=== PATIENT | female | born 1970 | race Caucasian/White ===

== ENCOUNTER 2018-01-23 10:16 | Inpatient (IN) | payer MEDICARE, OTHER ==
[~2018-01-23] VITALS: Ht 165.1 cm; Wt 104.3 kg
--- NOTE | 2018-01-23 10:40 | Emergency Room Report ---
History of Present Illness General Chief Complaint: Pain Source: Patient, Caregiver Present Illness HPI Patient was brought in by a transport Unfortunately that was very limited information obtained at the time of presentation Patient herself is intermittently verbal however appears confused and disoriented Not an appropriate historian History of present illness is significantly limited There was a report of total body pain however patient herself cannot provide any history Unknown regarding fall or trauma In the middle of the examination patient reports recent injection in the right foot with cortisone However is not able to elaborate Allergies: Coded Allergies: UNABLE TO ASSESS (Unverified , 01/23/18) Patient History Limited by: medical condition Past Medical History: see triage record Pertinent Family History: none Now: No Reviewed Nursing Documentation: PMH: Agreed; PSxH: Agreed Review of Systems All Other Systems: limited - Other than the ones mentioned in the history of present illness all others are reviewed however they do stay limited due to the patient's mental status Physical Exam Sp02 EP Interpretation: reviewed, normal General Appearance: no apparent distress Head: normocephalic, atraumatic Eyes: bilateral eye PERRL, bilateral eye EOMI ENT: hearing grossly normal, normal pharynx Neck: supple Respiratory: normal breath sounds, no retraction, no accessory muscle use Cardiovascular #1: regular rate, rhythm Gastrointestinal: non tender, soft Musculoskeletal: other - Patient does not follow commands for the examination however is observed moving upper extremities without focal deficit Neurologic: responsive Skin: normal color, no rash Lymphatic: no adenopathy Medical Decision Making Diagnostic Impression: Primary Impression: Acute encephalopathy Additional Impressions: Myalgia Leukocytosis ER Course Multiple differentials considered given the lack of information Given the examination patient had extensive blood work and imaging initiated White blood cell count is showing elevated counts Urine sample showed few blood in mild bacteria potentially the source of the presentation however CT imaging was done Also not showing significant pathology Patient's x-ray shows some mild crowding however patient has poor habitus and poor effort on inspiration likely causing the image does not appear clinically short of breath or in chf Patient provided brought pressure antibiotics and admitted for further care Labs Test 01/23/18 10:45 01/23/18 11:50 White Blood Count 14.9 K/UL (4.8-10.8) Red Blood Count 5.28 M/UL (4.20-5.40) Hemoglobin 15.7 G/DL (12.0-16.0) Hematocrit 47.8 % (37.0-47.0) Mean Corpuscular Volume 91 FL (80-99) Mean Corpuscular Hemoglobin 29.8 PG (27.0-31.0) Mean Corpuscular Hemoglobin Concent 32.9 G/DL (32.0-36.0) Red Cell Distribution Width 12.5 % (11.6-14.8) Platelet Count 397 K/UL (150-450) Mean Platelet Volume 5.7 FL (6.5-10.1) Neutrophils (%) (Auto) 70.4 % (45.0-75.0) Lymphocytes (%) (Auto) 19.8 % (20.0-45.0) Monocytes (%) (Auto) 8.0 % (1.0-10.0) Eosinophils (%) (Auto) 0.9 % (0.0-3.0) Basophils (%) (Auto) 0.9 % (0.0-2.0) Sodium Level 139 MMOL/L (136-145) Potassium Level 3.8 MMOL/L (3.5-5.1) Chloride Level 102 MMOL/L (98-107) Carbon Dioxide Level 27 MMOL/L (21-32) Anion Gap 10 mmol/L (5-15) Blood Urea Nitrogen 20 mg/dL (7-18) Creatinine 0.8 MG/DL (0.55-1.30) Estimat Glomerular Filtration Rate > 60 mL/min (>60) Glucose Level 98 MG/DL (74-106) Calcium Level 9.6 MG/DL (8.5-10.1) Total Bilirubin 0.7 MG/DL (0.2-1.0) Aspartate Amino Transf (AST/SGOT) 27 U/L (15-37) Alanine Aminotransferase (ALT/SGPT) 37 U/L (12-78) Alkaline Phosphatase 101 U/L (46-116) Total Creatine Kinase 146 U/L (26-308) Total Protein 10.0 G/DL (6.4-8.2) Albumin 4.1 G/DL (3.4-5.0) Globulin 5.9 g/dL Albumin/Globulin Ratio 0.7 (1.0-2.7) Lipase 160 U/L (73-393) Urine Color Yellow Urine Appearance Clear Urine pH 6 (4.5-8.0) Urine Specific [place] 1.020 (1.005-1.035) Urine Protein 3+ (NEGATIVE) Urine Glucose (UA) Negative (NEGATIVE) Urine Ketones 4+ (NEGATIVE) Urine Blood 5+ (NEGATIVE) Urine Nitrite Negative (NEGATIVE) Urine Bilirubin 1+ (NEGATIVE) Urine Ictotest Negative (NEGATIVE) Urine Urobilinogen 1 MG/DL (0.0-1.0) Urine Leukocyte Esterase 1+ (NEGATIVE) Urine RBC 5-10 /HPF (0 - 2) Urine WBC 2-4 /HPF (0 - 2) Urine Squamous Epithelial Cells Moderate /LPF (NONE/OCC) Urine Amorphous Sediment Few /LPF (NONE) Urine Bacteria Few /HPF (NONE) Urine HCG, Qualitative Negative (NEGATIVE) Rhythm Strip Diag. Results EP Interpretation: yes Rate: 90 Rhythm: NSR, no PVC's, no ectopy Chest X-Ray Diagnostic Results Chest X-Ray Diagnostic Results : Chest X-Ray Ordered: Yes # of Views/Limited/Complete: 1 View Indication: Chest Pain EP Interpretation: Yes Interpretation: no consolidation, no effusion, no pneumothorax, other - Mild congestion appearance Impression: Other - Mild congestion appearance, poor respiratory effort Electronically Signed by: Ramana Denise DO CT/MRI/US Diagnostic Results CT/MRI/US Diagnostic Results : Impression CT abdomen pelvisImpression: Limited assessment of the GI tract, due to lack of enteric contrast administration No definite acute abnormality Fatty liver Cholelithiasis Status: improved Disposition: ADMITTED INPATIENT Condition: Serious Ramana Denise DO Jan 23, 2018 10:40
[2018-01-23 10:58] VITALS: BP 158/99
[2018-01-23 10:59] LABS: BASOPHILS % (AUTO) 0.9 % (0.0-2.0); EOSINOPHILS % (AUTO) 0.9 % (0.0-3.0); HEMATOCRIT 47.8 % (37.0-47.0); HEMOGLOBIN 15.7 G/DL (12.0-16.0); LYMPHOCYTES % (AUTO) 19.8 % (20.0-45.0); MEAN CORPUSCULAR VOLUME 91 FL (80-99); NEUTROPHILS % (AUTO) 70.4 % (45.0-75.0); PLATELET COUNT 397 K/UL (150-450); RED BLOOD COUNT 5.28 M/UL (4.20-5.40); RED CELL DISTRIBUTION WIDTH 12.5 % (11.6-14.8); WHITE BLOOD COUNT 14.9 K/UL (4.8-10.8)
[2018-01-23] MEDS ORDERED: LORazepam Inj 2mg/ml 1ml IV ONE (11:00)
[2018-01-23 11:08] LABS: ANION GAP 10 mmol/L (5-15); BLOOD UREA NITROGEN 20 mg/dL (7-18); CALCIUM 9.6 MG/DL (8.5-10.1); CARBON DIOXIDE 27 MMOL/L (21-32); CHLORIDE 102 MMOL/L (98-107); CREATININE 0.8 MG/DL (0.55-1.30); POTASSIUM 3.8 MMOL/L (3.5-5.1); SODIUM 139 MMOL/L (136-145)
[2018-01-23 11:13] LABS: ALANINE AMINOTRANSFERASE 37 U/L (12-78); ALBUMIN 4.1 G/DL (3.4-5.0); ALBUMIN/GLOBULIN RATIO 0.7 (1.0-2.7); ALKALINE PHOSPHATASE 101 U/L (46-116); ASPARTATE AMINO TRANSFERASE 27 U/L (15-37); BILIRUBIN,TOTAL 0.7 MG/DL (0.2-1.0); CREATINE KINASE 146 U/L (26-308)
[2018-01-23] MEDS ORDERED: cefTRIAXone 1 GM in NS 55 ML IVPB ONE (12:15)
[2018-01-23 12:19] LABS: APPEARANCE,URINE CLEAR; BILIRUBIN, URINE 1+ (NEGATIVE); GLUCOSE, URINE (UA) NEGATIVE (NEGATIVE); KETONES,URINE 4+ (NEGATIVE); LEUKOCYTE ESTERASE ,URINE 1+ (NEGATIVE); NITRITE,URINE NEGATIVE (NEGATIVE); PH,URINE 6 (4.5-8.0); PROTEIN,URINE 3+ (NEGATIVE); UROBILINOGEN,URINE 1 MG/DL (0.0-1.0)
[2018-01-23 12:26] LABS: COLOR,URINE YELLOW
[2018-01-23] MEDS ORDERED: ZYPREXA10 MG ORAL (12:27)
[2018-01-23] MEDS ORDERED: MAPAP325 M1 PO (12:27)
[2018-01-23] MEDS ORDERED: METOPROLOL TART25 MG ORAL (12:27)
[2018-01-23] MEDS ORDERED: LISINOPRIL5 MG ORAL (12:27)
[2018-01-23] MEDS ORDERED: MULTIVITAMINS1 EAC2 ORAL (12:27)
[2018-01-23] MEDS ORDERED: LEVOTHYROXINE75 MCG ORAL (12:27)
[2018-01-23 12:45] VITALS: BP 146/82
[2018-01-23 14:23] VITALS: BP 135/78
--- NOTE | 2018-01-23 15:48 | Diagnostic Imaging Report ---
Indication: Shortness of breath Technique: One view of the chest Comparison: None Findings: Body habitus limits evaluation Low lung volumes noted. There is mild bilateral interstitial congestion, left greater than right. No focal airspace consolidation. The heart is borderline enlarged. Pleural spaces are grossly clear. Impression: Hypoventilatory exam Borderline cardiomegaly Suspect bilateral interstitial edema. Correlate with clinical findings
--- NOTE | 2018-01-23 15:56 | Diagnostic Imaging Report ---
Indication: Abdominal pain Technique: Spiral acquisitions obtained through the abdomen and pelvis. No oral contrast utilized, per emergency room physician request No IV contrast utilized, per referring physician request.. Multiplanar reconstructions were generated. Total dose length product 1018.21 mGycm. CTDIvol(s) 19.51 mGy. Dose reduction achieved using automated exposure control Comparison: None Findings: Lack of enteric contrast limits assessment of the GI tract. The appendix is normal. No evidence of diverticulosis or diverticulitis. No small bowel distention. No free or loculated intraperitoneal gas or fluid is evident. The distal esophagus, stomach, duodenum are unremarkable. Lack of IV contrast limits assessment of the solid organs. The liver is diffusely hypoattenuating, consistent with diffuse fatty change. No focal abnormality. The gallbladder demonstrates multiple calculi. It is somewhat distended, but there is no wall thickening or pericholecystic edema. No biliary ductal dilatation. The pancreas, spleen, adrenals, kidneys are unremarkable. No retroperitoneal or mesenteric mass or adenopathy. Normal uterus and ovaries. No pelvic mass or adenopathy. The included lung bases are clear. The bones are unremarkable. Impression: Limited assessment of the GI tract, due to lack of enteric contrast administration No definite acute abnormality Fatty liver Cholelithiasis The CT scanner at [facility] is accredited by the [employer] and the scans are performed using protocols designed to limit radiation exposure to as low as reasonably achievable to attain images of sufficient resolution adequate for diagnostic evaluation.
[2018-01-23] MEDS: NS w/KCl 20mEq 1,000 ML IV SCH (18:22)
[2018-01-23 20:00] VITALS: BP 156/97
[2018-01-23] MEDS: Heparin 5000 units/ml inj SUBQ SCH (21:00)
[2018-01-23] MEDS: Metoprolol Succinate XL 25mg tab ORAL SCH (21:32)
--- NOTE | 2018-01-23 22:00 | Consultation ---
DATE OF CONSULTATION: 01/23/2018 CARDIOLOGY CONSULTATION CONSULTING PHYSICIAN: Charles Morales M.D. REQUESTING PHYSICIAN: Jose Bustillo M.D. REASON: Evaluate for congestive heart failure. HISTORY OF PRESENT ILLNESS: This is a 47-year-old female with a psychiatric disorder who resides in a [facility]. Limited history is available from the patient as well as records. She apparently was quite confused and disoriented this morning and was sent for evaluation as a result. The patient reports total body pain, aching, and some nasal discharge. No cough, congestion, or shortness of breath. The patient apparently has recently gotten an injection of cortisone in her right foot, but is unable to give any additional details as to why. PAST MEDICAL HISTORY: Hypothyroidism, possible schizophrenia, and hypertension. ALLERGIES: None known. FAMILY HISTORY: Not obtained. Not known. SOCIAL HISTORY: She denies smoking, alcohol, or substance abuse. MEDICATIONS: Prior to admission, reviewed and reconciled. REVIEW OF SYSTEMS: A 10-point review of systems is performed. All systems negative other than noted above. Reliability is a question as noted above. PHYSICAL EXAMINATION: GENERAL: Awake and alert. No distress. Sad . VITAL SIGNS: Blood pressure is 146/80, pulse 118, and respiratory rate 18. Afebrile. HEENT: Conjunctivae pink. Oropharynx clear. Slight nasal erythema. NECK: Supple. LUNGS: Clear. CARDIAC: Regular rhythm and rate. Distant S1 and S2 with no murmur. BREASTS: No breast masses. ABDOMEN: Obese and soft. EXTREMITIES: Without edema. The feet revealed no open wounds or signs of inflammation. IMAGING DATA: pelvic CT is notable only for fatty liver and cholelithiasis. Chest x-ray reveals cardiomegaly, hypoventilation, and possible interstitial edema consistent with congestive heart failure. EKG is not available at this time. LABORATORY DATA: Labs reviewed. IMPRESSION: 1. Toxic and/or metabolic encephalopathy, possible medication effect, possible steroid effect if injection was recently given. 2. Leukocytosis due to above versus acute infection, although clinically no evidence at this time. 3. No clinical signs of acute congestive heart failure. 4. Obesity. 5. Hypothyroidism. 6. Psychiatric disorder. 7. Mild hypovolemia. 8. Dehydration. PLAN: 1. Echocardiogram. 2. Natriuretic peptide assay. 3. Metabolic and thyroid panel. 4. Decrease Zyprexa dose to 10 mg for now. 5. Reassess antihypertensive regimen. 6. Further recommendations will follow. Charles Morales M.D. DR: MARY ELLEN JOB#: [id number] CC:
[2018-01-24] VITALS: BP 142/99
[2018-01-24] MEDS: NS w/KCl 20mEq 1,000 ML IV SCH ×3 (01:00→21:00)
[2018-01-24 04:00] VITALS: BP 145/77
[2018-01-24 08:00] VITALS: BP 139/98
[2018-01-24] MEDS ORDERED: OLANZapine 10mg tab ORAL SCH (09:00)
[2018-01-24] MEDS: Heparin 5000 units/ml inj SUBQ SCH ×2 (09:00→21:00)
[2018-01-24 12:00] VITALS: BP_SYST 125; BP_SYST 152; BP_DIAS 104; BP_DIAS 82
--- NOTE | 2018-01-24 14:31 | General Progress Note ---
Assessment/Plan Problem List: (1) schizoaffective d/o Assessment/Plan dc zyprexa risperdal 2mg qhs welbutrin xl 150mg qam d/w sister script was given to sister Subjective Neurologic/Psychiatric: Reports: anxiety, depressed, emotional problems, other - the pt is endorsing AH and is delusional Allergies: Coded Allergies: UNABLE TO ASSESS (Unverified , 01/23/18) Objective Last 24 Hour Vital Signs Date Time Temp Pulse Resp B/P (MAP) Pulse Ox O2 Delivery O2 Flow Rate FiO2 01/24/18 09:00 Room Air 01/24/18 08:00 98.0 81 18 139/98 (112) 97 01/24/18 04:00 97.9 81 20 145/77 (99) 97 01/24/18 00:00 97.5 91 18 142/99 (113) 96 01/23/18 21:32 113 156/97 01/23/18 21:00 Room Air 01/23/18 20:00 97.5 113 20 156/97 (116) 99 01/23/18 17:36 Room Air Intake and Output 01/23/18 01/24/18 18:59 06:59 Intake Total 1240 ml 800 ml Balance 1240 ml 800 ml Intake Oral 240 ml 800 ml IV Total 1000 ml # Voids 1 2 Height (Feet): 5 Height (Inches): 5.00 Weight (Pounds): 230 General Appearance: no apparent distress, alert Neurologic: oriented x 3, responsive, depressed affect Kendell An MD Jan 24, 2018 14:31
[2018-01-24] MEDS: BuPROPion XL 150mg tab ORAL SCH (15:30)
[2018-01-24 16:00] VITALS: BP 125/82
--- NOTE | 2018-01-24 16:00 | History and Physical Report ---
DATE OF ADMISSION: 01/23/2018 CHIEF COMPLAINT: Congestive heart failure. HISTORY OF PRESENT ILLNESS: The patient is a 47-year-old female. She has a history of psychosis, was [facility] for altered mental status. The patient is minimally verbal and only nods yes or no to questions. She denies any fever or chills. No headache. No chest pain. She denies any shortness of breath but does have some congestion. In the emergency room, chest x-ray showed evidence of congestive heart failure. She is therefore admitted for further evaluation and care. PAST MEDICAL HISTORY: Significant for history of hypertension, hypothyroidism, history of psychosis. CURRENT MEDICATIONS: Reconciled and reviewed. ALLERGIES: None. FAMILY HISTORY: Unknown. SOCIAL HISTORY: There is no known history of tobacco, ethanol, or drugs. The patient currently resides in a [place]. REVIEW OF SYSTEMS: GENERAL: No fevers or chills. HEENT: No headaches. CARDIOPULMONARY: No chest pain or shortness of breath. GASTROINTESTINAL: No nausea or vomiting. GENITOURINARY: No urgency or frequency. MUSCULOSKELETAL: No joint pain or swelling. NEUROLOGIC: No evidence of seizures. PHYSICAL EXAMINATION: VITAL SIGNS: Temperature 98, pulse 81, respirations 20, and blood pressure 145/77. GENERAL: The patient is well-developed, no apparent distress. She is overweight. NECK: Supple. No jugular venous distention. HEART: Regular. LUNGS: Clear. ABDOMEN: Soft, obese, nontender. EXTREMITIES: Without clubbing or cyanosis. LABORATORY DATA: White count 14728, hemoglobin 15. Sodium 139, potassium 3.8, creatinine was 0.7. LFTs were unremarkable. UA showed 2 to 4 wbc's. Chest x-ray showed bilateral interstitial edema. CT abdomen was negative. ASSESSMENT: This is a pleasant female with history of hypertension, psychosis, hypothyroidism admitted with complaints of altered mental status, possible congestive heart failure exacerbation, possible bronchitis versus pneumonia, hypothyroidism, schizophrenia, hypertension. PLAN: 1. Repeat CBC. 2. Cardiology consultation. 3. Consider diuresis trial. 4. Check an echo. 5. Repeat chest x-ray. 6. Continue outpatient cardiac regimen. 7. Continue psych regimen. Jose Uomoto, M.D. DR: Ilan JOB#: [id number] CC:
[2018-01-24 20:00] VITALS: BP 129/78
[2018-01-24] MEDS: Metoprolol Succinate XL 25mg tab ORAL SCH (20:33)
--- NOTE | 2018-01-24 21:23 | Consultation ---
History of Present Illness General Date patient seen: Jan 23, 2018 Chief Complaint: Pain Present Illness HPI 47-year-old female with history of schizoaffective d/o, was transferred for [facility] for evaluation for altered mental status. the pt has underlying medical condition. her medication has recently changed per her sister. The pt has gained significant amount of weight. The pt is depressed and has fatigue. no si/hi Allergies: Coded Allergies: UNABLE TO ASSESS (Unverified , 01/23/18) Medication History Scheduled Levothyroxine Sodium* (Levothyroxine Sodium*), 75 MCG ORAL DAILY, (Reported) Lisinopril (Lisinopril*), 10 MG ORAL DAILY, (Reported) Metoprolol Tartrate* (Metoprolol Tartrate*), 25 MG ORAL BEDTIME, (Reported) Multivitamins* (Multivitamins*), 1 TAB ORAL DAILY, (Reported) Olanzapine* (Zyprexa*), 15 MG ORAL DAILY, (Reported) Miscellaneous Medications Acetaminophen (Mapap), 325 MG PO, (Reported) Patient History Limited by: medical condition History Provided By: Patient, PMD Healthcare decision maker Resuscitation status Do Not Resuscitate Advanced Directive on File Past Medical/Surgical History Past Medical/Surgical History: (1) Myalgia (2) Leukocytosis (3) Acute encephalopathy (4) schizoaffective d/o Review of Systems Psychiatric: Reports: prior hx, anxiety, depressed feelings, emotional problems Physical Exam General Appearance: alert, moderate distress Neurologic: oriented x 3, responsive, depressed affect Last 24 Hour Vital Signs Date Time Temp Pulse Resp B/P (MAP) Pulse Ox O2 Delivery O2 Flow Rate FiO2 01/24/18 20:33 83 121/84 01/24/18 16:00 97.0 80 20 125/82 (96) 01/24/18 12:00 97.0 80 20 125/82 (96) 98 01/24/18 12:00 97.2 88 18 152/104 (120) 100 01/24/18 12:00 98.1 88 18 152/104 (120) 01/24/18 09:00 Room Air 01/24/18 08:00 98.0 81 18 139/98 (112) 97 01/24/18 04:00 97.9 81 20 145/77 (99) 97 01/24/18 00:00 97.5 91 18 142/99 (113) 96 01/23/18 21:32 113 156/97 Intake and Output 01/23/18 01/24/18 19:00 07:00 Intake Total 1240 ml 800 ml Balance 1240 ml 800 ml Intake Oral 240 ml 800 ml IV Total 1000 ml # Voids 1 2 Height (Feet): 5 Height (Inches): 5.00 Weight (Pounds): 230 Medications Current Medications Medications (Trade) Dose Ordered Sig/Alfred Route PRN Reason Start Time Stop Time Status Last Admin Dose Admin Acetaminophen (Tylenol) 650 mg Q4H PRN ORAL Mild Pain/Temp > 100.5 01/23/18 16:00 02/22/18 15:59 Bupropion HCl (Wellbutrin XL) 150 mg DAILY ORAL 01/24/18 13:00 02/23/18 12:59 01/24/18 15:30 Heparin Sodium (Porcine) (Heparin 5000 units/ml) 5,000 units EVERY 12 HOURS SUBQ 01/23/18 21:00 02/22/18 20:59 Levothyroxine Sodium (Synthroid) 75 mcg DAILY@0630 ORAL 01/24/18 06:30 02/23/18 06:29 01/24/18 06:03 Metoprolol Succinate (Toprol XL) 25 mg BEDTIME ORAL 01/23/18 21:00 02/22/18 20:59 01/24/18 20:33 Multivitamins (Multivitamins) 1 tab DAILY ORAL 01/24/18 09:00 02/23/18 08:59 01/24/18 09:05 Risperidone (RisperDAL) 2 mg BEDTIME ORAL 01/24/18 21:00 02/23/18 20:59 01/24/18 20:29 Sodium Chloride 1,000 ml @ 100 mls/hr Q10H IV 01/23/18 15:00 02/22/18 14:59 01/23/18 18:22 Assessment/Plan Problem List: (1) schizoaffective d/o Status: not improved, unchanged Assessment/Plan risperdal 2mg qhs welbutrin xl 150mg Kendell Dillard MD Jan 24, 2018 21:23
--- NOTE | 2018-01-24 23:00 | Progress Note ---
DATE: 01/24/2018 CARDIOLOGY PROGRESS NOTE: SUBJECTIVE: The patient has no new complaints. Remains withdrawn. She has no shortness of breath and refused lab studies today. PHYSICAL EXAMINATION: VITAL SIGNS: Afebrile, blood pressure 152/104 to 125/82, heart rate 80, and respiratory rate 18. GENERAL: Lying flat. No respiratory distress. NECK: Obese. LUNGS: Diminished breath sounds. CARDIAC: Regular rhythm and rate. Distant S1 and S2. ABDOMEN: Obese and soft. EXTREMITIES: With no pitting edema. IMPRESSION: 1. Encephalopathy, etiology unclear. 2. Depression with psychosis. 3. Leukocytosis and possible indolent infection. 4. Possible congestive heart failure. PLAN: 1. Repeat laboratory studies. 2. Echocardiogram. 3. Natriuretic peptide assay. 4. Hold diuresis. 5. DVT prophylaxis. 6. Further recommendations will follow once diagnostic studies are available. Charles Morales M.D. DR: PAMELA JOB#: [id number] CC:
[2018-01-25 04:00] VITALS: BP 127/84
[2018-01-25 06:48] LABS: BASOPHILS % (AUTO) 0.9 % (0.0-2.0); EOSINOPHILS % (AUTO) 1.9 % (0.0-3.0); HEMATOCRIT 41.2 % (37.0-47.0); HEMOGLOBIN 13.9 G/DL (12.0-16.0); LYMPHOCYTES % (AUTO) 20.2 % (20.0-45.0); MEAN CORPUSCULAR VOLUME 91 FL (80-99); PLATELET COUNT 353 K/UL (150-450); RED BLOOD COUNT 4.53 M/UL (4.20-5.40); RED CELL DISTRIBUTION WIDTH 12.1 % (11.6-14.8); WHITE BLOOD COUNT 11.3 K/UL (4.8-10.8)
[2018-01-25] MEDS: NS w/KCl 20mEq 1,000 ML IV SCH ×2 (07:00→16:17)
[2018-01-25 07:14] LABS: ALANINE AMINOTRANSFERASE 40 U/L (12-78); ALBUMIN 3.4 G/DL (3.4-5.0); ALBUMIN/GLOBULIN RATIO 0.7 (1.0-2.7); ALKALINE PHOSPHATASE 84 U/L (46-116); ANION GAP 8 mmol/L (5-15); ASPARTATE AMINO TRANSFERASE 37 U/L (15-37); BILIRUBIN,TOTAL 0.5 MG/DL (0.2-1.0); BLOOD UREA NITROGEN 11 mg/dL (7-18); CALCIUM 8.6 MG/DL (8.5-10.1); CARBON DIOXIDE 29 MMOL/L (21-32); CHLORIDE 104 MMOL/L (98-107); CHOLESTEROL 135 MG/DL (< 200); CREATININE 0.7 MG/DL (0.55-1.30); HDL CHOLESTEROL 44 MG/DL (40-60); POTASSIUM 3.6 MMOL/L (3.5-5.1); SODIUM 140 MMOL/L (136-145); TRIGLYCERIDES 76 MG/DL (30-150)
--- NOTE | 2018-01-25 07:45 | General Progress Note ---
Assessment/Plan Problem List: (1) Myalgia ICD Codes: M79.1 - Myalgia SNOMED: 29906735 (2) Leukocytosis ICD Codes: D72.829 - Elevated white blood cell count, unspecified SNOMED: 800330093, 396812936 (3) schizoaffective d/o (4) Acute encephalopathy ICD Codes: G93.40 - Encephalopathy, unspecified SNOMED: 71815009, 536027268 Status: stable Assessment/Plan follow up echo- done. no results psych eval repeat cxr follow up labs pt/ot Subjective ROS Limited/Unobtainable: Yes Constitutional: Reports: malaise, weakness HEENT: Reports: no symptoms Cardiovascular: Reports: no symptoms Respiratory: Reports: no symptoms Gastrointestinal/Abdominal: Reports: no symptoms Genitourinary: Reports: no symptoms Neurologic/Psychiatric: Reports: no symptoms Endocrine: Reports: no symptoms Hematologic/Lymphatic: Reports: no symptoms Allergies: Coded Allergies: UNABLE TO ASSESS (Unverified , 01/23/18) All Systems: reviewed and negative except above Subjective no events. nonverbal. responds by nodding head. no sob. Objective Last 24 Hour Vital Signs Date Time Temp Pulse Resp B/P (MAP) Pulse Ox O2 Delivery O2 Flow Rate FiO2 01/25/18 04:00 97.6 84 18 127/84 (98) 93 01/24/18 21:00 Room Air 01/24/18 20:33 83 121/84 01/24/18 20:00 98.1 85 18 129/78 (95) 93 01/24/18 16:00 97.0 80 20 125/82 (96) 01/24/18 12:00 97.0 80 20 125/82 (96) 98 01/24/18 12:00 97.2 88 18 152/104 (120) 100 01/24/18 12:00 98.1 88 18 152/104 (120) 01/24/18 09:00 Room Air 01/24/18 08:00 98.0 81 18 139/98 (112) 97 Intake and Output 01/24/18 01/25/18 19:00 07:00 Intake Total 480 ml 660 ml Balance 480 ml 660 ml Intake Oral 480 ml 660 ml # Voids 4 4 Laboratory Tests 01/25/18 06:05: White Blood Count 11.3H, Red Blood Count 4.53, Hemoglobin 13.9, Hematocrit 41.2 , Mean Corpuscular Volume 91, Mean Corpuscular Hemoglobin 30.6, Mean Corpuscular Hemoglobin Concent 33.7, Red Cell Distribution Width 12.1, Platelet Count 353, Mean Platelet Volume 5.6L, Neutrophils (%) (Auto) 71.0, Lymphocytes ( %) (Auto) 20.2, Monocytes (%) (Auto) 6.0, Eosinophils (%) (Auto) 1.9, Basophils (%) (Auto) 0.9, Sodium Level 140, Potassium Level 3.6, Chloride Level 104, Carbon Dioxide Level 29, Anion Gap 8, Blood Urea Nitrogen 11, Creatinine 0.7, Estimat Glomerular Filtration Rate > 60, Glucose Level 101, Calcium Level 8.6, Total Bilirubin 0.5, Aspartate Amino Transf (AST/SGOT) 37, Alanine Aminotransferase (ALT/SGPT) 40, Alkaline Phosphatase 84, Pro-B-Type Natriuretic Peptide 64, Total Protein 8.4H, Albumin 3.4, Globulin 5.0, Albumin/Globulin Ratio 0.7L, Triglycerides Level 76, Cholesterol Level 135, LDL Cholesterol 82, HDL Cholesterol 44, Cholesterol/HDL Ratio 3.1L, Vitamin B12 Level [Pending], Vitamin D 25-Hydroxy [Pending], 25-Hydroxy Vitamin D2 [Pending], 25-Hydroxy Vitamin D3 [Pending], Folate [Pending], Thyroid Stimulating Hormone (TSH) 9.430H , Free Thyroxine 1.29, Triiodothyronine (T3) Uptake [Pending] Height (Feet): 5 Height (Inches): 5.00 Weight (Pounds): 230 General Appearance: WD/WN Neck: supple Cardiovascular: regular rhythm Respiratory/Chest: lungs clear Abdomen: normal bowel sounds, non tender, soft, no organomegaly Edema: no edema noted Arm (L), no edema noted Arm (R), no edema noted Leg (L), no edema noted Leg (R), no edema noted Pedal (L), no edema noted Pedal (R), no edema noted Generalized Jose Bustillo MD Jan 25, 2018 07:45
[2018-01-25 08:46] VITALS: BP 118/79
[2018-01-25] MEDS: Heparin 5000 units/ml inj SUBQ SCH ×2 (09:00→21:00)
[2018-01-25] MEDS: BuPROPion XL 150mg tab ORAL SCH (09:00)
[2018-01-25 12:00] VITALS: BP 125/70
--- NOTE | 2018-01-25 14:35 | Cardiology Report ---
APPROVED REPORT EXAM: Two-dimensional and M-mode echocardiogram with Doppler and color Doppler. INDICATION Congestive Heart Failure M-Mode DIMENSIONS IVSd1.3 (0.7-1.1cm)Left Atrium (MM)3.7 (1.6-4.0cm) LVDd4.9 (3.5-5.6cm)Aortic Root2.7 (2.0-3.7cm) PWd1.5 (0.7-1.1cm)Aortic Cusp Exc.1.9 (1.5-2.0cm) LVDs3.4 (2.5-4.0cm) PWs2.0 cm Limited 2D echo study. Patient requested to terminated exam early. Technically difficult study due to patient body habitus. Study quality precludes accurate assessment of regional wall motion. Normal left ventricular chamber size, systolic function and wall motion to extent visualized. Left ventricular ejection fraction grossly estimated to be 60 %. Mild left ventricular hypertrophy. Anterior Echo-free space, may be due to pericardial fat or effusion. Right atrial chamber not visualized. Right ventricle chamber size appears to be within normal limits. Left atrial chamber size appear to be within normal limits. Normal appearing aortic and mitral valves. Mild mitral annulus and aortic root calcification. Pulmonic valve not visualized. Tricuspid valve not visualized. Subcostal views not obtained. A color flow and spectral Doppler study was performed and revealed: There appears to be no aortic insufficiency. There appears to be no mitral regurgitation.
[2018-01-25 16:26] VITALS: BP 129/74
[2018-01-25 20:00] VITALS: BP 128/72
[2018-01-25] MEDS: Metoprolol Succinate XL 25mg tab ORAL SCH (21:59)
--- NOTE | 2018-01-25 22:45 | Progress Note ---
DATE: 01/25/2018 CARDIOLOGY PROGRESS NOTE SUBJECTIVE: The patient remains withdrawn, mostly nonverbal, response by head motion. No shortness of breath. OBJECTIVE: VITAL SIGNS: Blood pressure 127/84, pulse 84, and respirations 18. GENERAL: Moderately obese. LUNGS: Diminished breath sounds. No rales. HEART: Regular rhythm and rate. Normal S1 and S2. ABDOMEN: Soft and obese. There is no pitting edema. LABORATORY AND DIAGNOSTIC DATA: Echocardiogram revealed normal ejection fraction and no valvular pathology. Natriuretic peptide was 64. IMPRESSION: 1. No clinical or echocardiographic evidence of left ventricular dysfunction or congestive heart failure. Chest x-ray findings are likely due to obesity rather than pulmonary venous congestion. 2. Hypothyroidism with elevated TSH, likely due to noncompliance with replacement therapy. PLAN: 1. Psychiatric followup. 2. Advance thyroid replacement dose daily. 3. on an empty stomach. 4. No cardiovascular therapy presently indicated. 5. Monitor blood pressure parameters. Charles Morales M.D. DR: JOSÉ MIGUEL JOB#: [id number] CC:
--- NOTE | 2018-01-25 23:59 | General Progress Note ---
Assessment/Plan Problem List: (1) schizoaffective d/o Assessment/Plan risperdal 2mg qhs welbutrin xl 150mg qam Subjective Neurologic/Psychiatric: Reports: anxiety, depressed, emotional problems Allergies: Coded Allergies: UNABLE TO ASSESS (Unverified , 01/23/18) Objective Last 24 Hour Vital Signs Date Time Temp Pulse Resp B/P (MAP) Pulse Ox O2 Delivery O2 Flow Rate FiO2 01/25/18 21:59 75 128/72 01/25/18 21:00 Room Air 01/25/18 20:00 97.2 75 18 128/72 (90) 96 01/25/18 16:26 97.9 68 17 129/74 (92) 97 01/25/18 12:00 96.9 73 18 125/70 (88) 97 01/25/18 09:00 Room Air 01/25/18 08:46 97.5 83 18 118/79 (92) 96 01/25/18 04:00 97.6 84 18 127/84 (98) 93 Intake and Output 01/24/18 01/25/18 19:00 07:00 Intake Total 480 ml 660 ml Balance 480 ml 660 ml Intake Oral 480 ml 660 ml # Voids 4 4 Laboratory Tests 01/25/18 06:05: White Blood Count 11.3H, Red Blood Count 4.53, Hemoglobin 13.9, Hematocrit 41.2 , Mean Corpuscular Volume 91, Mean Corpuscular Hemoglobin 30.6, Mean Corpuscular Hemoglobin Concent 33.7, Red Cell Distribution Width 12.1, Platelet Count 353, Mean Platelet Volume 5.6L, Neutrophils (%) (Auto) 71.0, Lymphocytes ( %) (Auto) 20.2, Monocytes (%) (Auto) 6.0, Eosinophils (%) (Auto) 1.9, Basophils (%) (Auto) 0.9, Sodium Level 140, Potassium Level 3.6, Chloride Level 104, Carbon Dioxide Level 29, Anion Gap 8, Blood Urea Nitrogen 11, Creatinine 0.7, Estimat Glomerular Filtration Rate > 60, Glucose Level 101, Calcium Level 8.6, Total Bilirubin 0.5, Aspartate Amino Transf (AST/SGOT) 37, Alanine Aminotransferase (ALT/SGPT) 40, Alkaline Phosphatase 84, Pro-B-Type Natriuretic Peptide 64, Total Protein 8.4H, Albumin 3.4, Globulin 5.0, Albumin/Globulin Ratio 0.7L, Triglycerides Level 76, Cholesterol Level 135, LDL Cholesterol 82, HDL Cholesterol 44, Cholesterol/HDL Ratio 3.1L, Vitamin B12 Level 433, Vitamin D 25-Hydroxy [Pending], 25-Hydroxy Vitamin D2 [Pending], 25-Hydroxy Vitamin D3 [ Pending], Folate 28.4, Thyroid Stimulating Hormone (TSH) 9.430H, Free Thyroxine 1.29, Triiodothyronine (T3) Uptake [Pending] Height (Feet): 5 Height (Inches): 5.00 Weight (Pounds): 230 General Appearance: no apparent distress, alert Neurologic: oriented x 3, responsive, depressed affect Kendell An MD Jan 25, 2018 23:59
[2018-01-26] MEDS: NS w/KCl 20mEq 1,000 ML IV SCH ×3 (03:00→23:00)
[2018-01-26 04:00] VITALS: BP 105/62
[2018-01-26 08:00] VITALS: BP 121/88
[2018-01-26] MEDS: BuPROPion XL 150mg tab ORAL SCH (08:17)
[2018-01-26] MEDS: Heparin 5000 units/ml inj SUBQ SCH ×2 (08:25→21:00)
[2018-01-26 12:00] VITALS: BP 126/77
--- NOTE | 2018-01-26 12:38 | General Progress Note ---
Assessment/Plan Problem List: (1) Myalgia ICD Codes: M79.1 - Myalgia SNOMED: 95235534 (2) Leukocytosis ICD Codes: D72.829 - Elevated white blood cell count, unspecified SNOMED: 239605268, 376610772 (3) schizoaffective d/o (4) Acute encephalopathy ICD Codes: G93.40 - Encephalopathy, unspecified SNOMED: 84390788, 225027605 Status: stable, progressing Assessment/Plan follow up echo- done. no results psych eval/rx follow up labs pt/ot Subjective ROS Limited/Unobtainable: No Constitutional: Reports: malaise, weakness HEENT: Reports: no symptoms Cardiovascular: Reports: no symptoms Respiratory: Reports: no symptoms Gastrointestinal/Abdominal: Reports: no symptoms Genitourinary: Reports: no symptoms Neurologic/Psychiatric: Reports: no symptoms Endocrine: Reports: no symptoms Hematologic/Lymphatic: Reports: no symptoms Allergies: Coded Allergies: UNABLE TO ASSESS (Unverified , 01/23/18) All Systems: reviewed and negative except above Subjective no events. nonverbal. responds by nodding head. no sob. no chest pain compliant with rx. Objective Last 24 Hour Vital Signs Date Time Temp Pulse Resp B/P (MAP) Pulse Ox O2 Delivery O2 Flow Rate FiO2 01/26/18 12:00 96.3 72 17 126/77 (93) 97 01/26/18 08:00 97.3 77 16 121/88 (99) 97 01/26/18 04:00 97.5 75 18 105/62 (76) 93 01/25/18 21:59 75 128/72 01/25/18 21:00 Room Air 01/25/18 20:00 97.2 75 18 128/72 (90) 96 01/25/18 16:26 97.9 68 17 129/74 (92) 97 Intake and Output 01/25/18 01/26/18 19:00 07:00 Intake Total 480 ml Balance 480 ml Intake Oral 480 ml # Voids 2 Height (Feet): 5 Height (Inches): 5.00 Weight (Pounds): 230 General Appearance: WD/WN, alert Neck: supple Cardiovascular: normal rate, regular rhythm Respiratory/Chest: chest wall non-tender, lungs clear Abdomen: normal bowel sounds, non tender, soft Edema: no edema noted Arm (L), no edema noted Arm (R), no edema noted Leg (L), no edema noted Leg (R), no edema noted Pedal (L), no edema noted Pedal (R), no edema noted Generalized Jose Bustillo MD Jan 26, 2018 12:38
[2018-01-26 20:00] VITALS: BP_SYST 145; BP_SYST 95; BP_DIAS 70; BP_DIAS 81
[2018-01-26] MEDS: Metoprolol Succinate XL 25mg tab ORAL SCH ×2 (20:32→20:47)
[2018-01-27] VITALS: BP 110/65
[2018-01-27 04:00] VITALS: BP 126/76
--- NOTE | 2018-01-27 07:47 | General Progress Note ---
Assessment/Plan Problem List: (1) Myalgia ICD Codes: M79.1 - Myalgia SNOMED: 21580408 (2) Leukocytosis ICD Codes: D72.829 - Elevated white blood cell count, unspecified SNOMED: 683041796, 026279055 (3) schizoaffective d/o (4) Acute encephalopathy ICD Codes: G93.40 - Encephalopathy, unspecified SNOMED: 34319440, 250005983 Status: stable Assessment/Plan echo nml ef psych eval/rx follow up labs pt/ot dc planning Subjective ROS Limited/Unobtainable: No Constitutional: Reports: weakness HEENT: Reports: no symptoms Cardiovascular: Reports: no symptoms Respiratory: Reports: no symptoms Gastrointestinal/Abdominal: Reports: no symptoms Genitourinary: Reports: no symptoms Neurologic/Psychiatric: Reports: emotional problems Endocrine: Reports: no symptoms Hematologic/Lymphatic: Reports: no symptoms Allergies: Coded Allergies: UNABLE TO ASSESS (Unverified , 01/23/18) All Systems: reviewed and negative except above Subjective no events. nonverbal but follows commands. lasb pending. no sob Objective Last 24 Hour Vital Signs Date Time Temp Pulse Resp B/P (MAP) Pulse Ox O2 Delivery O2 Flow Rate FiO2 01/27/18 04:00 97.2 18 126/76 (93) 97 01/27/18 00:00 96.6 18 110/65 (80) 94 01/26/18 20:47 72 145/81 01/26/18 20:00 97.7 18 95/70 (78) 96 01/26/18 20:00 145/81 (102) 01/26/18 12:00 96.3 72 17 126/77 (93) 97 01/26/18 08:00 97.3 77 16 121/88 (99) 97 Intake and Output 01/26/18 01/27/18 19:00 07:00 Intake Total 240 ml Balance 240 ml Intake Oral 240 ml # Voids 3 Height (Feet): 5 Height (Inches): 5.00 Weight (Pounds): 230 Objective General Appearance: WD/WN Neck: supple Cardiovascular: regular rhythm Respiratory/Chest: lungs clear Abdomen: normal bowel sounds, non tender, soft, no organomegaly Edema: no edema noted Arm (L), no edema noted Arm (R), no edema noted Leg (L), no edema noted Leg (R), no edema noted Pedal (L), no edema noted Pedal (R), no edema noted Generalized Jose Bustillo MD Jan 27, 2018 07:47
[2018-01-27 08:00] VITALS: BP 132/74
[2018-01-27] MEDS: NS w/KCl 20mEq 1,000 ML IV SCH ×2 (08:40→19:00)
[2018-01-27] MEDS: Heparin 5000 units/ml inj SUBQ SCH ×2 (08:40→21:00)
[2018-01-27] MEDS: BuPROPion XL 150mg tab ORAL SCH (08:51)
[2018-01-27 12:00] VITALS: BP 128/96
[2018-01-27 16:00] VITALS: BP 126/76
[2018-01-27] MEDS: Metoprolol Succinate XL 25mg tab ORAL SCH (21:00)
--- NOTE | 2018-01-27 21:41 | General Progress Note ---
Assessment/Plan Problem List: (1) schizoaffective d/o Status: stable Assessment/Plan risperdal 3mg qhs welbutrin xl 150mg qam Subjective Neurologic/Psychiatric: Reports: anxiety, depressed, emotional problems Allergies: Coded Allergies: UNABLE TO ASSESS (Unverified , 01/23/18) Objective Last 24 Hour Vital Signs Date Time Temp Pulse Resp B/P (MAP) Pulse Ox O2 Delivery O2 Flow Rate FiO2 01/27/18 16:00 97.7 76 18 126/76 (93) 97 01/27/18 12:00 97.7 102 21 128/96 (107) 99 01/27/18 08:00 96.9 21 132/74 (93) 94 01/27/18 04:00 97.2 18 126/76 (93) 97 01/27/18 00:00 96.6 18 110/65 (80) 94 Intake and Output 01/26/18 01/27/18 18:59 06:59 Intake Total 240 ml Balance 240 ml Intake Oral 240 ml # Voids 3 Height (Feet): 5 Height (Inches): 5.00 Weight (Pounds): 230 General Appearance: alert Neurologic: oriented x 3, responsive, depressed affect MIPS Unhealthy Alcohol Use 431 (psycho/diag only) Patient was screened for unhealthy alcohol use today or within the past 2 years. Patient was NOT identified as an unhealthy alcohol user. Tobacco Use 226 (psycho/diag only) Patient was screened for tobacco use today or within the past 2 years. Patient was NOT identified as a tobacco user. BMI 128 (psycho/diag only) I Obtained,updated or reviewed the patient's current medications (including prescription,over the counter, herbal, and nutritional supplements). Depression 134,411,370 (psycho/diag only) Depression screening was performed today. PHQ-9 Score: 25 Does this Patient have Dementi: Kendell Lam MD Jan 27, 2018 21:41
[2018-01-27] MEDS ORDERED: Haloperidol Decanoate 50mg Inj IM ONE (23:00)
[2018-01-28] VITALS: BP 129/75
--- NOTE | 2018-01-28 00:30 | Progress Note ---
DATE: 01/27/2018 CARDIOLOGY PROGRESS NOTE SUBJECTIVE: No change in condition. No shortness of breath lying flat. OBJECTIVE: VITAL SIGNS: Blood pressure 126/76, pulse 72, and respirations 18. LUNGS: Diminished breath sounds. No wheezes. HEART: Regular rhythm and rate. Distant S1, S2. ABDOMEN: Obese. EXTREMITIES: No pitting edema. IMPRESSION: 1. No signs of primary cardiovascular insufficiency. 2. Morbid obesity. 3. Hypothyroidism. 4. Depression. PLAN: 1. Thyroid replacement. 2. DVT prophylaxis until mobility improves. 3. No additional cardiovascular therapy presently indicated. Charles Morales M.D. DR: PORTER JOB#: [id number] CC:
--- NOTE | 2018-01-28 00:30 | Progress Note ---
DATE: 01/26/2018 CARDIOLOGY PROGRESS NOTE Late entry for 01/26/2018. SUBJECTIVE: The patient is minimally verbal. Willfully withdrawn. OBJECTIVE: VITAL SIGNS: Blood pressure 126/77, pulse 72, respirations 17, and afebrile. Echocardiogram with normal ejection fraction and no significant valvular pathology. Moderately obese. LUNGS: Clear. CARDIAC: Regular. ABDOMEN: Obese. EXTREMITIES: There is no pitting edema. LABORATORY DATA: Vitamin D level still pending. IMPRESSION: 1. No clinical signs or echocardiographic signs of left ventricular systolic dysfunction or acute congestive heart failure. 2. Moderate obesity. 3. Hypothyroidism. PLAN: 1. Plan of care in place. 2. Thyroid dose advanced. 3. DVT prophylaxis due to immobility should continue. 4. We will follow. Charles Morales M.D. DR: PORTER JOB#: [id number] CC:
[2018-01-28 04:00] VITALS: BP 126/67
[2018-01-28] MEDS: NS w/KCl 20mEq 1,000 ML IV SCH ×2 (05:00→15:00)
[2018-01-28] MEDS: Heparin 5000 units/ml inj SUBQ SCH ×2 (09:00→21:20)
[2018-01-28] MEDS: BuPROPion XL 150mg tab ORAL SCH ×2 (10:05→10:09)
[2018-01-28 12:00] VITALS: BP 129/75
[2018-01-28 16:00] VITALS: BP 150/90
[2018-01-28] MEDS ORDERED: Haloperidol Decanoate 50mg Inj IM SCH (19:00)
[2018-01-28 20:00] VITALS: BP 153/96
[2018-01-28] MEDS: Metoprolol Succinate XL 25mg tab ORAL SCH (21:19)
--- NOTE | 2018-01-28 23:30 | Progress Note ---
DATE: 01/28/2018 CARDIOLOGY PROGRESS NOTE SUBJECTIVE: Psychiatric followup is appreciated. The patient is agitated and not cooperative and intentionally nonverbal. Neuroleptic dosing was adjusted. OBJECTIVE: VITAL SIGNS: Stable. LUNGS: Clear. CARDIAC: Regular. ABDOMEN: Obese and soft. EXTREMITIES: No pitting edema. IMPRESSION: 1. Hypothyroidism. On replacement therapy. 2. Schizoaffective disorder. On neuroleptics and antidepressants. 3. No clinical signs of acute congestive heart failure. PLAN: 1. Continued observation. 2. Discharge planning once psychiatrically stable. Charles Morales M.D. DR: PORTER JOB#: [id number] CC:
--- NOTE | 2018-01-28 23:45 | General Progress Note ---
Assessment/Plan Problem List: (1) schizoaffective d/o Status: stable, progressing Assessment/Plan risperdal 3mg qhs welbutrin xl 150mg qam Subjective Neurologic/Psychiatric: Reports: anxiety, depressed, emotional problems Allergies: Coded Allergies: UNABLE TO ASSESS (Unverified , 01/23/18) Subjective the pt was delusional and responding to is she was waiting outside of her room Objective Last 24 Hour Vital Signs Date Time Temp Pulse Resp B/P (MAP) Pulse Ox O2 Delivery O2 Flow Rate FiO2 01/28/18 21:19 92 153/96 01/28/18 20:00 98.0 92 20 153/96 (115) 93 01/28/18 16:00 98.1 20 150/90 (110) 01/28/18 12:00 16 129/75 (93) 01/28/18 04:00 98.1 76 17 126/67 (86) 98 01/28/18 00:00 84 16 129/75 (93) 98 Intake and Output 01/27/18 01/28/18 19:00 07:00 Intake Total 240 ml Balance 240 ml Intake Oral 240 ml # Voids 2 Height (Feet): 5 Height (Inches): 5.00 Weight (Pounds): 230 General Appearance: no apparent distress, alert, morbidly obese Neurologic: oriented x 3, responsive, depressed affect Kendell An MD Jan 28, 2018 23:45
[2018-01-29] VITALS: BP 131/85
[2018-01-29] MEDS: NS w/KCl 20mEq 1,000 ML IV SCH ×3 (01:00→11:12)
[2018-01-29 04:00] VITALS: BP 147/104
[2018-01-29] MEDS: BuPROPion XL 150mg tab ORAL SCH (09:08)
[2018-01-29] MEDS: Heparin 5000 units/ml inj SUBQ SCH ×2 (09:10→21:00)
--- NOTE | 2018-01-29 15:36 | General Progress Note ---
Assessment/Plan Problem List: (1) schizoaffective d/o Status: unchanged Assessment/Plan Risperdal 4mg qhs Wellbutrin xl 150mg qam the pts nurse was told to crush the meds and administer the pt lacks capacity to make decisions Subjective Neurologic/Psychiatric: Reports: anxiety, depressed Allergies: Coded Allergies: UNABLE TO ASSESS (Unverified , 01/23/18) Subjective the pt was delusional and responding to is she was waiting outside of her room the pt has poor hygiene and not swallowing meds. per sister the pt has hx of pocketing meds and not taking it Objective Last 24 Hour Vital Signs Date Time Temp Pulse Resp B/P (MAP) Pulse Ox O2 Delivery O2 Flow Rate FiO2 01/29/18 04:00 98.0 99 20 147/104 (118) 99 01/29/18 00:00 98.2 99 18 131/85 (100) 96 01/28/18 21:19 92 153/96 01/28/18 20:00 98.0 92 20 153/96 (115) 93 01/28/18 16:00 98.1 20 150/90 (110) Intake and Output 01/28/18 01/29/18 19:00 07:00 Intake Total 75 ml 240 ml Balance 75 ml 240 ml Intake Oral 75 ml 240 ml # Voids 1 1 # Bowel Movements 1 Height (Feet): 5 Height (Inches): 5.00 Weight (Pounds): 230 General Appearance: alert, morbidly obese Neurologic: responsive - delusional and disorganized, depressed affect Kendell An MD Jan 29, 2018 15:36
[2018-01-29 20:00] VITALS: BP 100/53
[2018-01-29] MEDS: Metoprolol Succinate XL 25mg tab ORAL SCH (21:00)
--- NOTE | 2018-01-29 21:39 | General Progress Note ---
Assessment/Plan Problem List: (1) Myalgia ICD Codes: M79.1 - Myalgia SNOMED: 81519138 (2) Leukocytosis ICD Codes: D72.829 - Elevated white blood cell count, unspecified SNOMED: 743069937, 208065312 (3) schizoaffective d/o (4) Acute encephalopathy ICD Codes: G93.40 - Encephalopathy, unspecified SNOMED: 51818680, 997719922 Assessment/Plan psych eval/rx follow up labs pt/ot dc planning Subjective Date patient seen: Jan 28, 2018 Time patient seen: 06:00 Constitutional: Reports: no symptoms HEENT: Reports: no symptoms Cardiovascular: Reports: no symptoms Respiratory: Reports: no symptoms Gastrointestinal/Abdominal: Reports: no symptoms Genitourinary: Reports: no symptoms Neurologic/Psychiatric: Reports: no symptoms Endocrine: Reports: no symptoms Hematologic/Lymphatic: Reports: no symptoms Allergies: Coded Allergies: UNABLE TO ASSESS (Unverified , 01/23/18) All Systems: reviewed and negative except above Subjective no events. alert. nonverbal but follows commands. Objective Last 24 Hour Vital Signs Date Time Temp Pulse Resp B/P (MAP) Pulse Ox O2 Delivery O2 Flow Rate FiO2 01/29/18 04:00 98.0 99 20 147/104 (118) 99 01/29/18 00:00 98.2 99 18 131/85 (100) 96 Intake and Output 01/28/18 01/29/18 19:00 07:00 Intake Total 75 ml 240 ml Balance 75 ml 240 ml Intake Oral 75 ml 240 ml # Voids 1 1 # Bowel Movements 1 Height (Feet): 5 Height (Inches): 5.00 Weight (Pounds): 230 Objective General Appearance: WD/WN Neck: supple Cardiovascular: regular rhythm Respiratory/Chest: lungs clear Abdomen: normal bowel sounds, non tender, soft, no organomegaly Edema: no edema noted Arm (L), no edema noted Arm (R), no edema noted Leg (L), no edema noted Leg (R), no edema noted Pedal (L), no edema noted Pedal (R), no edema noted Generalized Jose Bustillo MD Jan 29, 2018 21:39
--- NOTE | 2018-01-29 21:43 | General Progress Note ---
Assessment/Plan Problem List: (1) Myalgia ICD Codes: M79.1 - Myalgia SNOMED: 56370991 (2) Leukocytosis ICD Codes: D72.829 - Elevated white blood cell count, unspecified SNOMED: 683120318, 007062101 (3) schizoaffective d/o (4) Acute encephalopathy ICD Codes: G93.40 - Encephalopathy, unspecified SNOMED: 40611262, 739311142 Status: stable, progressing Assessment/Plan psych eval/rx- psychotic/altered monitor for eps/td pt/ot ?psyh transfer Subjective ROS Limited/Unobtainable: Yes Constitutional: Reports: malaise, weakness HEENT: Reports: no symptoms Cardiovascular: Reports: no symptoms Respiratory: Reports: no symptoms Gastrointestinal/Abdominal: Reports: no symptoms Genitourinary: Reports: no symptoms Neurologic/Psychiatric: Reports: no symptoms Endocrine: Reports: no symptoms Hematologic/Lymphatic: Reports: no symptoms Allergies: Coded Allergies: UNABLE TO ASSESS (Unverified , 01/23/18) All Systems: reviewed and negative except above Subjective no events. alert. doesnt respond to questions or commands. Objective Last 24 Hour Vital Signs Date Time Temp Pulse Resp B/P (MAP) Pulse Ox O2 Delivery O2 Flow Rate FiO2 01/29/18 04:00 98.0 99 20 147/104 (118) 99 01/29/18 00:00 98.2 99 18 131/85 (100) 96 Intake and Output 01/28/18 01/29/18 19:00 07:00 Intake Total 75 ml 240 ml Balance 75 ml 240 ml Intake Oral 75 ml 240 ml # Voids 1 1 # Bowel Movements 1 Height (Feet): 5 Height (Inches): 5.00 Weight (Pounds): 230 Objective General Appearance: WD/WN Neck: supple Cardiovascular: regular rhythm Respiratory/Chest: lungs clear Abdomen: normal bowel sounds, non tender, soft, no organomegaly Edema: no edema noted Arm (L), no edema noted Arm (R), no edema noted Leg (L), no edema noted Leg (R), no edema noted Pedal (L), no edema noted Pedal (R), no edema noted Generalized Jose Bustillo MD Jan 29, 2018 21:43
[2018-01-30] VITALS: BP 116/68
[2018-01-30 04:00] VITALS: BP 134/90
[2018-01-30] MEDS: NS w/KCl 20mEq 1,000 ML IV SCH ×2 (06:24→16:27)
[2018-01-30] MEDS: Heparin 5000 units/ml inj SUBQ SCH ×3 (09:00→20:45)
[2018-01-30] MEDS: BuPROPion XL 150mg tab ORAL SCH ×2 (09:00→09:07)
--- NOTE | 2018-01-30 09:56 | General Progress Note ---
Assessment/Plan Problem List: (1) Myalgia ICD Codes: M79.1 - Myalgia SNOMED: 92056138 (2) Leukocytosis ICD Codes: D72.829 - Elevated white blood cell count, unspecified SNOMED: 879217012, 547437307 (3) schizoaffective d/o (4) Acute encephalopathy ICD Codes: G93.40 - Encephalopathy, unspecified SNOMED: 47376876, 782702603 Status: stable, progressing Assessment/Plan psych eval/rx- psychotic/altered monitor for eps/td pt/ot ?psych transfer Subjective ROS Limited/Unobtainable: No Constitutional: Reports: malaise, weakness HEENT: Reports: no symptoms Cardiovascular: Reports: no symptoms Respiratory: Reports: no symptoms Gastrointestinal/Abdominal: Reports: no symptoms Genitourinary: Reports: no symptoms Neurologic/Psychiatric: Reports: no symptoms Endocrine: Reports: no symptoms Hematologic/Lymphatic: Reports: no symptoms Allergies: Coded Allergies: UNABLE TO ASSESS (Unverified , 01/23/18) All Systems: reviewed and negative except above Subjective no events. alert. does not respond to questions or commands. Objective Last 24 Hour Vital Signs Date Time Temp Pulse Resp B/P (MAP) Pulse Ox O2 Delivery O2 Flow Rate FiO2 01/30/18 04:00 96.6 102 20 134/90 (105) 95 01/30/18 00:00 98.0 99 20 116/68 (84) 99 01/29/18 21:00 102 100/53 01/29/18 20:00 98.3 102 20 100/53 (69) 98 Intake and Output 01/29/18 01/30/18 18:59 06:59 Intake Total 240 ml Output Total 3 ml Balance 240 ml -3 ml Intake Oral 240 ml Output Urine Total 3 ml # Voids 2 Height (Feet): 5 Height (Inches): 5.00 Weight (Pounds): 230 Objective General Appearance: WD/WN Neck: supple Cardiovascular: regular rhythm Respiratory/Chest: lungs clear Abdomen: normal bowel sounds, non tender, soft, no organomegaly Edema: no edema noted Arm (L), no edema noted Arm (R), no edema noted Leg (L), no edema noted Leg (R), no edema noted Pedal (L), no edema noted Pedal (R), no edema noted Generalized Uomoto,Jose M. MD Jan 30, 2018 09:56
--- NOTE | 2018-01-30 13:25 | General Progress Note ---
Assessment/Plan Problem List: (1) schizoaffective d/o Assessment/Plan Risperdal 4mg qhs Wellbutrin xl 150mg qam the pts nurse was told to crush the meds and administer the pt lacks capacity to make decisions the pt needs psychiatric care Subjective Neurologic/Psychiatric: Reports: anxiety, depressed, emotional problems Allergies: Coded Allergies: UNABLE TO ASSESS (Unverified , 01/23/18) Subjective the pt is malodorous and is not taking her meds. the pt was delusional and responding to is she was waiting outside of her room the pt has poor hygiene and not swallowing meds. per sister the pt has hx of pocketing meds and not taking it Objective Last 24 Hour Vital Signs Date Time Temp Pulse Resp B/P (MAP) Pulse Ox O2 Delivery O2 Flow Rate FiO2 01/30/18 04:00 96.6 102 20 134/90 (105) 95 01/30/18 00:00 98.0 99 20 116/68 (84) 99 01/29/18 21:00 102 100/53 01/29/18 20:00 98.3 102 20 100/53 (69) 98 Intake and Output 01/29/18 01/30/18 19:00 07:00 Intake Total 240 ml Output Total 3 ml Balance 240 ml -3 ml Intake Oral 240 ml Output Urine Total 3 ml # Voids 2 Height (Feet): 5 Height (Inches): 5.00 Weight (Pounds): 230 General Appearance: no apparent distress, alert, morbidly obese Neurologic: oriented x 3, responsive MIPS Unhealthy Alcohol Use 431 (psycho/diag only) Patient was screened for unhealthy alcohol use today or within the past 2 years. Patient was NOT identified as an unhealthy alcohol user. Tobacco Use 226 (psycho/diag only) Patient was screened for tobacco use today or within the past 2 years. Patient was NOT identified as a tobacco user. BMI 128 (psycho/diag only) BMI was documented today or within the past year. BMI was outside normal parameters, and the patient received counseling. Depression 134,411,370 (psycho/diag only) Depression screening was performed in the past 6 months. PHQ-9 Score: 25 Does this Patient have Dementi: No Kendell An MD Jan 30, 2018 13:25
[2018-01-30] MEDS ORDERED: Haloperidol Decanoate 50mg Inj IM ONE (13:30)
--- NOTE | 2018-01-30 20:16 | Cardiology Report ---
APPROVED REPORT EKG Measurement Heart [id number] DC [id number] [id number] Sinus tachycardia Otherwise normal ECG
[2018-01-30] MEDS: Metoprolol Succinate XL 25mg tab ORAL SCH (20:45)
[2018-01-31] MEDS: NS w/KCl 20mEq 1,000 ML IV SCH ×3 (03:00→23:00)
[2018-01-31 08:00] VITALS: BP 131/79
--- NOTE | 2018-01-31 08:06 | General Progress Note ---
Assessment/Plan Problem List: (1) Myalgia ICD Codes: M79.1 - Myalgia SNOMED: 63347529 (2) Leukocytosis ICD Codes: D72.829 - Elevated white blood cell count, unspecified SNOMED: 308458216, 552320457 (3) schizoaffective d/o (4) Acute encephalopathy ICD Codes: G93.40 - Encephalopathy, unspecified SNOMED: 17576854, 017914474 Status: stable Assessment/Plan psych eval/rx monitor for eps/td pt/ot ?psych transfer Subjective ROS Limited/Unobtainable: No Constitutional: Reports: no symptoms HEENT: Reports: no symptoms Cardiovascular: Reports: no symptoms Respiratory: Reports: no symptoms Gastrointestinal/Abdominal: Reports: no symptoms Genitourinary: Reports: no symptoms Neurologic/Psychiatric: Reports: no symptoms, emotional problems Endocrine: Reports: no symptoms Allergies: Coded Allergies: UNABLE TO ASSESS (Unverified , 01/23/18) All Systems: reviewed and negative except above Subjective resting. noncompliant with meds and vitals. refusing to eat. nonverbal Objective Last 24 Hour Vital Signs Date Time Temp Pulse Resp B/P (MAP) Pulse Ox O2 Delivery O2 Flow Rate FiO2 01/30/18 20:45 99 111/84 Intake and Output 01/30/18 01/31/18 19:00 07:00 Intake Total 180 ml Balance 180 ml Intake Oral 180 ml # Voids 2 Height (Feet): 5 Height (Inches): 5.00 Weight (Pounds): 230 General Appearance: WD/WN Cardiovascular: regular rhythm Respiratory/Chest: lungs clear Abdomen: non tender, soft Edema: no edema noted Arm (L), no edema noted Arm (R), no edema noted Leg (L), no edema noted Leg (R), no edema noted Pedal (L), no edema noted Pedal (R), no edema noted Generalized Objective General Appearance: WD/WN Neck: supple Cardiovascular: regular rhythm Respiratory/Chest: lungs clear Abdomen: normal bowel sounds, non tender, soft, no organomegaly Edema: no edema noted Arm (L), no edema noted Arm (R), no edema noted Leg (L), no edema noted Leg (R), no edema noted Pedal (L), no edema noted Pedal (R), no edema noted Generalized Uomoto,Jose M. MD Jan 31, 2018 08:06
[2018-01-31] MEDS: BuPROPion XL 150mg tab ORAL SCH (09:00)
[2018-01-31] MEDS: Heparin 5000 units/ml inj SUBQ SCH ×2 (09:00→21:00)
[2018-01-31 12:00] VITALS: BP 148/90
--- NOTE | 2018-01-31 12:53 | General Progress Note ---
Assessment/Plan Problem List: (1) schizoaffective d/o Status: stable, progressing Assessment/Plan Risperdal 4mg qhs Wellbutrin xl 150mg qam the pts nurse was told to crush the meds and administer the pt lacks capacity to make decisions the pt needs psychiatric care Subjective Neurologic/Psychiatric: Reports: anxiety, depressed Allergies: Coded Allergies: UNABLE TO ASSESS (Unverified , 01/23/18) Subjective the pt is malodorous and is not taking her meds. the pt was psychotic. the pt AH. The pt is depressed. the pt is non compliant with meds Objective Last 24 Hour Vital Signs Date Time Temp Pulse Resp B/P (MAP) Pulse Ox O2 Delivery O2 Flow Rate FiO2 01/31/18 12:00 98.5 82 20 148/90 (109) 98 01/31/18 08:00 98.1 85 19 131/79 (96) 98 01/30/18 20:45 99 111/84 Intake and Output 01/30/18 01/31/18 18:59 06:59 Intake Total 180 ml Balance 180 ml Intake Oral 180 ml # Voids 2 Height (Feet): 5 Height (Inches): 5.00 Weight (Pounds): 230 General Appearance: alert, confused, agitated Neurologic: depressed affect Kendell An MD Jan 31, 2018 12:53
[2018-01-31 16:34] LABS: ALANINE AMINOTRANSFERASE 57 U/L (12-78); ALBUMIN 3.8 G/DL (3.4-5.0); ALBUMIN/GLOBULIN RATIO 0.9 (1.0-2.7); ALKALINE PHOSPHATASE 92 U/L (46-116); ANION GAP 14 mmol/L (5-15); ASPARTATE AMINO TRANSFERASE 42 U/L (15-37); BILIRUBIN,TOTAL 0.5 MG/DL (0.2-1.0); BLOOD UREA NITROGEN 12 mg/dL (7-18); CALCIUM 8.9 MG/DL (8.5-10.1); CARBON DIOXIDE 26 MMOL/L (21-32); CHLORIDE 103 MMOL/L (98-107); CREATININE 0.5 MG/DL (0.55-1.30); POTASSIUM 3.6 MMOL/L (3.5-5.1); SODIUM 142 MMOL/L (136-145)
[2018-01-31 16:50] LABS: BASOPHILS % (AUTO) 0.8 % (0.0-2.0); EOSINOPHILS % (AUTO) 2.8 % (0.0-3.0); HEMATOCRIT 42.4 % (37.0-47.0); HEMOGLOBIN 14.5 G/DL (12.0-16.0); LYMPHOCYTES % (AUTO) 26.1 % (20.0-45.0); MEAN CORPUSCULAR VOLUME 89 FL (80-99); MONOCYTES % (AUTO) 7.4 % (1.0-10.0); NEUTROPHILS % (AUTO) 62.8 % (45.0-75.0); PLATELET COUNT 367 K/UL (150-450); RED BLOOD COUNT 4.79 M/UL (4.20-5.40); RED CELL DISTRIBUTION WIDTH 11.5 % (11.6-14.8); WHITE BLOOD COUNT 10.8 K/UL (4.8-10.8)
[2018-01-31 20:00] VITALS: BP 146/93
[2018-01-31] MEDS: Metoprolol Succinate XL 25mg tab ORAL SCH (21:11)
--- NOTE | 2018-02-01 08:34 | General Progress Note ---
Assessment/Plan Problem List: (1) Myalgia ICD Codes: M79.1 - Myalgia SNOMED: 63329393 (2) Leukocytosis ICD Codes: D72.829 - Elevated white blood cell count, unspecified SNOMED: 837363145, 670953219 (3) schizoaffective d/o (4) Acute encephalopathy ICD Codes: G93.40 - Encephalopathy, unspecified SNOMED: 44821187, 280811107 Status: stable, progressing Assessment/Plan psych eval/rx monitor for eps/td pt/ot ?psych transfer Subjective ROS Limited/Unobtainable: No Constitutional: Reports: no symptoms HEENT: Reports: no symptoms Cardiovascular: Reports: no symptoms Respiratory: Reports: no symptoms Gastrointestinal/Abdominal: Reports: no symptoms Genitourinary: Reports: no symptoms Neurologic/Psychiatric: Reports: no symptoms Endocrine: Reports: no symptoms Hematologic/Lymphatic: Reports: no symptoms Allergies: Coded Allergies: UNABLE TO ASSESS (Unverified , 01/23/18) All Systems: reviewed and negative except above Subjective no change. resting. noncompliant with meds and vitals. refusing to eat. nonverbal. awaiting pet team eval Objective Last 24 Hour Vital Signs Date Time Temp Pulse Resp B/P (MAP) Pulse Ox O2 Delivery O2 Flow Rate FiO2 01/31/18 21:21 Room Air 01/31/18 21:11 79 146/93 01/31/18 20:00 97.6 79 18 146/93 (110) 98 01/31/18 12:00 98.5 82 20 148/90 (109) 98 Intake and Output 01/31/18 02/01/18 19:00 07:00 Intake Total 50 ml 300 ml Balance 50 ml 300 ml Intake Oral 50 ml 300 ml # Voids 2 Laboratory Tests 01/31/18 16:05: White Blood Count 10.8, Red Blood Count 4.79, Hemoglobin 14.5, Hematocrit 42.4, Mean Corpuscular Volume 89, Mean Corpuscular Hemoglobin 30.2, Mean Corpuscular Hemoglobin Concent 34.1, Red Cell Distribution Width 11.5L, Platelet Count 367, Mean Platelet Volume 5.9L, Neutrophils (%) (Auto) 62.8, Lymphocytes (%) (Auto) 26.1, Monocytes (%) (Auto) 7.4, Eosinophils (%) (Auto) 2.8, Basophils (%) (Auto ) 0.8, Sodium Level 142, Potassium Level 3.6, Chloride Level 103, Carbon Dioxide Level 26, Anion Gap 14, Blood Urea Nitrogen 12, Creatinine 0.5L, Estimat Glomerular Filtration Rate > 60, Glucose Level 72L, Calcium Level 8.9, Magnesium Level 1.7L, Total Bilirubin 0.5, Aspartate Amino Transf (AST/SGOT) 42H , Alanine Aminotransferase (ALT/SGPT) 57, Alkaline Phosphatase 92, Total Protein 8.2, Albumin 3.8, Globulin 4.4, Albumin/Globulin Ratio 0.9L Height (Feet): 5 Height (Inches): 5.00 Weight (Pounds): 230 Objective General Appearance: WD/WN Neck: supple Cardiovascular: regular rhythm Respiratory/Chest: lungs clear Abdomen: normal bowel sounds, non tender, soft, no organomegaly Edema: no edema noted Arm (L), no edema noted Arm (R), no edema noted Leg (L), no edema noted Leg (R), no edema noted Pedal (L), no edema noted Pedal (R), no edema noted Generalized Jose Bustillo MD Feb 01, 2018 08:34
[2018-02-01] MEDS: NS w/KCl 20mEq 1,000 ML IV SCH ×2 (09:00→19:00)
[2018-02-01] MEDS: BuPROPion XL 150mg tab ORAL SCH (09:00)
[2018-02-01] MEDS: Heparin 5000 units/ml inj SUBQ SCH ×2 (09:00→20:52)
[2018-02-01 20:00] VITALS: BP 116/68
[2018-02-01] MEDS: Metoprolol Succinate XL 25mg tab ORAL SCH (20:52)
[2018-02-02] VITALS: BP 137/88
[2018-02-02 04:00] VITALS: BP 142/79
[2018-02-02] MEDS: NS w/KCl 20mEq 1,000 ML IV SCH ×2 (05:00→15:00)
[2018-02-02] MEDS: Heparin 5000 units/ml inj SUBQ SCH ×2 (09:00→21:00)
[2018-02-02] MEDS: BuPROPion XL 150mg tab ORAL SCH ×2 (09:00→10:13)
--- NOTE | 2018-02-02 09:06 | General Progress Note ---
Assessment/Plan Problem List: (1) Myalgia ICD Codes: M79.1 - Myalgia SNOMED: 88749086 (2) Leukocytosis ICD Codes: D72.829 - Elevated white blood cell count, unspecified SNOMED: 588585695, 317991452 (3) schizoaffective d/o (4) Acute encephalopathy ICD Codes: G93.40 - Encephalopathy, unspecified SNOMED: 20431197, 427850131 Status: stable, progressing Assessment/Plan psych eval/rx monitor for eps/td pt/ot ?psych transfer Subjective ROS Limited/Unobtainable: No Constitutional: Reports: no symptoms HEENT: Reports: no symptoms Cardiovascular: Reports: no symptoms Respiratory: Reports: no symptoms Gastrointestinal/Abdominal: Reports: no symptoms Genitourinary: Reports: no symptoms Neurologic/Psychiatric: Reports: emotional problems Endocrine: Reports: no symptoms Hematologic/Lymphatic: Reports: no symptoms Allergies: Coded Allergies: UNABLE TO ASSESS (Unverified , 01/23/18) All Systems: reviewed and negative except above Subjective no change. resting. noncompliant with meds and vitals. ate breakfast this am. nonverbal. awaiting pet team eval Objective Last 24 Hour Vital Signs Date Time Temp Pulse Resp B/P (MAP) Pulse Ox O2 Delivery O2 Flow Rate FiO2 02/02/18 04:00 98.3 76 18 142/79 (100) 96 02/02/18 00:00 98.2 80 18 137/88 (104) 98 02/01/18 21:00 Room Air 02/01/18 20:52 80 126/80 02/01/18 20:00 98.3 80 18 116/68 (84) 96 Intake and Output 02/01/18 02/02/18 19:00 07:00 Intake Total 120 ml Balance 120 ml Intake Oral 120 ml # Voids 1 Height (Feet): 5 Height (Inches): 5.00 Weight (Pounds): 230 Objective General Appearance: WD/WN Neck: supple Cardiovascular: regular rhythm Respiratory/Chest: lungs clear Abdomen: normal bowel sounds, non tender, soft, no organomegaly Edema: no edema noted Arm (L), no edema noted Arm (R), no edema noted Leg (L), no edema noted Leg (R), no edema noted Pedal (L), no edema noted Pedal (R), no edema noted Generalized Jose Bustillo MD Feb 02, 2018 09:06
[2018-02-02 12:00] VITALS: BP 136/81
[2018-02-02] MEDS: Metoprolol Succinate XL 25mg tab ORAL SCH (21:00)
--- NOTE | 2018-02-02 22:28 | General Progress Note ---
Assessment/Plan Problem List: (1) schizoaffective d/o Status: stable Assessment/Plan Risperdal 4mg qhs Wellbutrin xl 150mg qam the pts nurse was told to crush the meds and administer the pt lacks capacity to make decisions the pt needs psychiatric care Subjective Date patient seen: Feb 02, 2018 Neurologic/Psychiatric: Reports: anxiety, depressed Allergies: Coded Allergies: UNABLE TO ASSESS (Unverified , 01/23/18) Subjective the pt is malodorous and is not taking her meds. the pt was psychotic. the pt AH. The pt is depressed. the pt is non compliant with meds Objective Last 24 Hour Vital Signs Date Time Temp Pulse Resp B/P (MAP) Pulse Ox O2 Delivery O2 Flow Rate FiO2 02/02/18 12:00 97.7 19 136/81 (99) 02/02/18 09:00 Room Air 02/02/18 04:00 98.3 76 18 142/79 (100) 96 02/02/18 00:00 98.2 80 18 137/88 (104) 98 Intake and Output 02/01/18 02/02/18 19:00 07:00 Intake Total 120 ml Balance 120 ml Intake Oral 120 ml # Voids 1 Height (Feet): 5 Height (Inches): 5.00 Weight (Pounds): 230 General Appearance: alert, confused, agitated, morbidly obese MIPS Medication Reconciliation Is this a Psycho/Diag encounte: Kendell Lam MD Feb 02, 2018 22:28
--- NOTE | 2018-02-02 22:28 | Consultation ---
History of Present Illness General Chief Complaint: Pain Present Illness Allergies: Coded Allergies: UNABLE TO ASSESS (Unverified , 01/23/18) Medication History Scheduled Levothyroxine Sodium* (Levothyroxine Sodium*), 75 MCG ORAL DAILY, (Reported) Lisinopril (Lisinopril*), 10 MG ORAL DAILY, (Reported) Metoprolol Tartrate* (Metoprolol Tartrate*), 25 MG ORAL BEDTIME, (Reported) Multivitamins* (Multivitamins*), 1 TAB ORAL DAILY, (Reported) Olanzapine* (Zyprexa*), 15 MG ORAL DAILY, (Reported) Miscellaneous Medications Acetaminophen (Mapap), 325 MG PO, (Reported) Patient History Healthcare decision maker Resuscitation status Do Not Resuscitate Advanced Directive on File Physical Exam Last 24 Hour Vital Signs Date Time Temp Pulse Resp B/P (MAP) Pulse Ox O2 Delivery O2 Flow Rate FiO2 02/02/18 12:00 97.7 19 136/81 (99) 02/02/18 09:00 Room Air 02/02/18 04:00 98.3 76 18 142/79 (100) 96 02/02/18 00:00 98.2 80 18 137/88 (104) 98 Intake and Output 02/01/18 02/02/18 19:00 07:00 Intake Total 120 ml Balance 120 ml Intake Oral 120 ml # Voids 1 Height (Feet): 5 Height (Inches): 5.00 Weight (Pounds): 230 Medications Current Medications Medications (Trade) Dose Ordered Sig/Alfred Route PRN Reason Start Time Stop Time Status Last Admin Dose Admin Acetaminophen (Tylenol) 650 mg Q4H PRN ORAL Mild Pain/Temp > 100.5 01/23/18 16:00 02/22/18 15:59 Bupropion HCl (Wellbutrin XL) 150 mg DAILY ORAL 01/29/18 09:00 02/28/18 08:59 01/29/18 09:08 Heparin Sodium (Porcine) (Heparin 5000 units/ml) 5,000 units EVERY 12 HOURS SUBQ 01/23/18 21:00 02/22/18 20:59 01/29/18 09:10 Levothyroxine Sodium (Synthroid) 100 mcg DAILY@0630 ORAL 01/26/18 06:30 02/25/18 06:29 02/02/18 06:04 Metoprolol Succinate (Toprol XL) 25 mg BEDTIME ORAL 01/23/18 21:00 02/22/18 20:59 02/01/18 20:52 Multivitamins (Multivitamins) 1 tab DAILY ORAL 01/24/18 09:00 02/23/18 08:59 01/29/18 09:08 Risperidone (RisperDAL) 4 mg BEDTIME ORAL 01/29/18 21:00 02/28/18 20:59 02/01/18 20:52 Sodium Chloride 1,000 ml @ 100 mls/hr Q10H IV 01/23/18 15:00 02/22/18 14:59 01/23/18 18:22 Assessment/Plan Problem List: (1) schizoaffective d/o Assessment/Plan Risperdal 4mg qhs Wellbutrin xl 150mg qam the pts nurse was told to crush the meds and administer the pt lacks capacity to make decisions the pt needs psychiatric care Kendell An MD Feb 02, 2018 22:28
--- NOTE | 2018-02-02 23:30 | Progress Note ---
DATE: 02/02/2018 CARDIOLOGY PROGRESS NOTE SUBJECTIVE: Remains condition unchanged. Awaiting PET team evaluation and possible psych transfer. Refuses medications and oral intake as well as self-care including showers. Receiving IM and IV therapy as able. Magnesium level of 1.7 noted on 01/31/2018. PHYSICAL EXAMINATION: VITAL SIGNS: Stable. LUNGS: Diminished breath sounds. HEART: Regular rhythm rate. Normal S1, S2. ABDOMEN: Obese. EXTREMITIES: 1+ dependent edema. PLAN: 1. Psych therapy. 2. IV magnesium. 3. Encourage oral intake and protein supplement. 4. Cannot discharge safely at this time. She is a danger to herself due to lack of health care. Charles Morales M.D. DR: CHIQUITA JOB#: [id number] CC:
[2018-02-03] MEDS: NS w/KCl 20mEq 1,000 ML IV SCH ×3 (01:00→21:00)
[2018-02-03] MEDS: BuPROPion XL 150mg tab ORAL SCH (09:00)
[2018-02-03] MEDS: Heparin 5000 units/ml inj SUBQ SCH ×2 (09:00→21:00)
[2018-02-03] MEDS ORDERED: Vitamin D 1000 IU Tab ORAL SCH (14:00)
--- NOTE | 2018-02-03 14:13 | General Progress Note ---
Assessment/Plan Problem List: (1) schizoaffective d/o Status: unchanged Assessment/Plan Risperdal 4mg qhs Wellbutrin xl 150mg qam the pts nurse was told to crush the meds and administer the pt lacks capacity to make decisions the pt needs psychiatric care Subjective Neurologic/Psychiatric: Reports: anxiety, depressed Allergies: Coded Allergies: UNABLE TO ASSESS (Unverified , 01/23/18) Subjective the pt is malodorous and is not taking her meds. Objective Last 24 Hour Vital Signs Date Time Temp Pulse Resp B/P (MAP) Pulse Ox O2 Delivery O2 Flow Rate FiO2 02/03/18 09:00 Room Air 02/02/18 21:00 Room Air Intake and Output 02/02/18 02/03/18 19:00 07:00 # Voids 4 # Bowel Movements 1 Height (Feet): 5 Height (Inches): 5.00 Weight (Pounds): 230 General Appearance: WD/WN, no apparent distress, alert, morbidly obese Kendell An MD Feb 03, 2018 14:13
--- NOTE | 2018-02-03 14:40 | General Progress Note ---
Assessment/Plan Problem List: (1) Myalgia ICD Codes: M79.1 - Myalgia SNOMED: 18551574 (2) Leukocytosis ICD Codes: D72.829 - Elevated white blood cell count, unspecified SNOMED: 294241584, 186619062 (3) schizoaffective d/o (4) Acute encephalopathy ICD Codes: G93.40 - Encephalopathy, unspecified SNOMED: 44401678, 119142258 Status: stable, not improved Assessment/Plan psych eval/rx monitor for eps/td pt/ot ?psych transfer Subjective ROS Limited/Unobtainable: No Constitutional: Reports: malaise, weakness HEENT: Reports: no symptoms Cardiovascular: Reports: no symptoms Respiratory: Reports: no symptoms Gastrointestinal/Abdominal: Reports: no symptoms Genitourinary: Reports: no symptoms Neurologic/Psychiatric: Reports: no symptoms Endocrine: Reports: no symptoms Hematologic/Lymphatic: Reports: no symptoms Allergies: Coded Allergies: UNABLE TO ASSESS (Unverified , 01/23/18) All Systems: reviewed and negative except above Subjective no change. resting. refusing meds and vitals. remains nonverbal but nods to questions Objective Last 24 Hour Vital Signs Date Time Temp Pulse Resp B/P (MAP) Pulse Ox O2 Delivery O2 Flow Rate FiO2 02/03/18 09:00 Room Air 02/02/18 21:00 Room Air Intake and Output 02/02/18 02/03/18 19:00 07:00 # Voids 4 # Bowel Movements 1 Height (Feet): 5 Height (Inches): 5.00 Weight (Pounds): 230 Objective General Appearance: WD/WN Neck: supple Cardiovascular: regular rhythm Respiratory/Chest: lungs clear Abdomen: normal bowel sounds, non tender, soft, no organomegaly Edema: no edema noted Arm (L), no edema noted Arm (R), no edema noted Leg (L), no edema noted Leg (R), no edema noted Pedal (L), no edema noted Pedal (R), no edema noted Generalized Jose Bustillo MD Feb 03, 2018 14:40
--- NOTE | 2018-02-03 19:45 | Progress Note ---
DATE: 02/03/2018 CARDIOLOGY PROGRESS NOTE SUBJECTIVE: Oral intake is poor. The patient continues to refuse medical therapy and personal care. Laboratories, no new laboratories. Vitamin D level has come back low. PHYSICAL EXAMINATION: LUNGS: Diminished breath sounds. HEART: Regular rhythm and rate. Normal S1, S2. ABDOMEN: Soft. EXTREMITIES: No edema. IMPRESSION: 1. Schizoaffective disorder. 2. No signs of congestive heart failure. 3. Vitamin D deficiency. 4. Hypothyroidism. 5. Hypertension, controlled. PLAN: 1. Await transfer for [facility]. 2. Continue vitamin and thyroid replacement if the patient permits. 3. Encourage oral intake. 4. Maintain beta-yohan for blood pressure control. Charles Morales M.D. DR: PORTER JOB#: [id number] CC:
[2018-02-03] MEDS: Metoprolol Succinate XL 25mg tab ORAL SCH (21:00)
[2018-02-04] MEDS ORDERED: Vitamin D 1000 IU Tab ORAL SCH (09:00)
--- NOTE | 2018-02-04 13:15 | Discharge Summary ---
Discharge Summary Discharge Summary _ DATE OF ADMISSION: 01/24/2000 DATE OF DISCHARGE: 02/03/2018 REASON FOR ADMISSION: 47 years old female with past medical history of hypertension, hypothyroidism, history of psychosis, transferred from [facility] for evaluation due to altered mental status. Patient was minimally verbal and only nodded her head to yes or no questions. Patient denied fever and chills, no headache, no chest pain, no shortness of breath. Upon evaluation vital signs were stable. Workup revealed leukocytosis with WBC 14.9 ,stable hemoglobin/ hematocrit. Stable electrolytes and renal parameters. Urinalysis revealed +3 protein , +4 blood , +1 leukocyte esterase, few bacteria. Urine test was negative. Chest x-ray revealed borderline cardiomegaly. Possible bilateral interstitial edema. CT scan of abdomen and pelvis demonstrated no definite acute abnormality. Fatty liver. Cholelithiasis Patient admitted with diagnoses of altered mental status, possible congestive heart failure exacerbation, possible bronchitis versus pneumonia, hypothyroidism , schizophrenia, hypertension. CONSULTANTS: [employer] Dr. Morales psychiatrist [facility]: Patient admitted and started initially on diuresis trial with close monitoring of volumes and cardiorenal parameters. Echocardiogram revealed preserved ejection fraction of 60%. No wall motion abnormality. Mild left ventricular hypertrophy. Associate Director Of Nursing closely followed. Lipid panel was stable. Pro BNP 64. Diuresis stopped. Per [employer], no clinical or echocardiographic evidence of left ventricular dysfunction or congestive heart failure. Chest x-ray findings were likely due to obesity , rather than pulmonary venous congestion. Noted elevated TSH, likely due to noncompliance with replacement therapy. Levothyroxine was continued. Blood pressure was managed with beta-yohan and remained stable. Vitamin D level noted to be low, and patient started on vitamin D replacement. Patient was given 1 Liter of IV fluids . BUN from initial 20 down to 12. Electrolytes corrected as needed. Nephrotoxins were avoided. Leukocytosis resolved , likely was reactive. No clinical evidence of infection. No fevers. DVT prophylaxis provided. Oral intake was encouraged. Psychiatrist closely followed . Per psychiatrist , patient lacked capacity to make decisions and required psychiatric care. Psychiatric medication regimen was optimized while in the hospital. Patient continued to refuse medications and treatment. PET team from [facility] placed patient on [id number] hold. Patient subsequently was transferred to [facility] for psychiatric management FINAL DIAGNOSES: Acute toxic and metabolic encephalopathy Leukocytosis - resolved Obesity Hypertension- controlled Hypothyroidism Dehydration with mild hypovolemia-resolved Schizoaffective disorder Vitamin D deficiency DISCHARGE MEDICATIONS: List of medication was sent to accepting facility DISCHARGE INSTRUCTIONS: Patient was transferred to [facility] facility for psychiatric management I have been assigned to dictate discharge summary for this account. I was not involved in the patient's management. Paty Sheppard NP Feb 04, 2018 13:15
--- NOTE | 2018-02-05 01:30 | Progress Note ---
DATE: 01/29/2018 CARDIOLOGY PROGRESS NOTE Late entry for 01/29/2018. SUBJECTIVE: The patient is refusing medications. Not responding to questions or commands. Refusing self-care. OBJECTIVE: VITAL SIGNS: Blood pressure 147/104, pulse 99, respirations 20, and afebrile. GENERAL: Obese. LUNGS: Clear. CARDIAC: Regular. Distant S1 and S2. ABDOMEN: Soft. No pitting edema. IMPRESSION: Elevated blood pressure. Refusing medications orally. Psychiatric component likely contributing to blood pressure elevation. No signs of congestive heart failure clinically. PLAN: Topical clonidine or nitroglycerin paste should blood pressure parameters remain elevated and the patient continued to refuse oral therapy. Otherwise, lisinopril should be titrated for optimal blood pressure control if the patient agrees to oral drugs. Charles Morales M.D. DR: CHACHA JOB#: [id number] CC:
== END 2018-02-03 22:00 | DRG 93 ==
LOC: EMR 11:18 → 4E 11:24 → EDBEDREQ 11:38 → 4E 14:44
DX: G92 Toxic encephalopathy (principal); F25.9 Schizoaffective disorder, unspecified; E86.0 Dehydration; I10 Essential (primary) hypertension; E03.9 Hypothyroidism, unspecified; E66.9 Obesity, unspecified; E86.1 Hypovolemia; E55.9 Vitamin D deficiency, unspecified; Z91.14 Patient's other noncompliance with medication regimen; M79.10 Myalgia, unspecified site; F32.9 Major depressive disorder, single episode, unspecified
CPT/HCPCS: 36415; 71045; 74176; 80053; 80061; 81003; 81025; 82306; 82550; 82607; 82746; 83690; 83735; 83880; 84439; 84443; 84480; 85025; 87081; 93005; 93306; 96361; 96365; 96375; 99285; J8499